=== PATIENT | female | born 1990 | race Caucasian/White ===

== ENCOUNTER → 2016-10-27 | Outpatient (CLI) | payer SELFPAY ==
[~2016-10-27] MED LIST: OMNICEF 300MG300 MG PO
== END ==
LOC: COL.RAD 09:45
DX: Z13.89 Encounter for screening for other disorder (principal)

== ENCOUNTER → 2017-04-04 | Outpatient (CLI) | payer SELFPAY | LOC: COL.RAD 10:23 | DX: N93.8 Other specified abnormal uterine and vaginal bleeding (principal) ==

== ENCOUNTER 2021-01-23 11:06 | Emergency (ER) | payer SELFPAY ==
[~2021-01-23] VITALS: Ht 162.6 cm; Wt 70.9 kg
[2021-01-23 11:41] LABS: COLLECTION METHOD CLEAN CATCH
[2021-01-23 11:50] LABS: BASO % 0.4 % (0.0-2.0); EOS # 0.1 (0.0-0.7); GRAN # 5.1 (1.4-6.5); GRAN % 64.8 % (42.2-75.2); HEMOGLOBIN 12.2 g/dl (12.5-16.0); LYMPH % 25.8 % (20.0-51.0); MEAN CELL VOLUME 90 fl (80.0-100.0); MEAN CORPUSCULAR HEMOGLOBIN 31 pg (27.0-31.0); MEAN CORPUSCULAR HGB CONC 34 g/dl (33.0-37.0); MEAN PLATELET VOLUME 9.8 fl (7.4-10.4); MONO # 0.6 (0.1-0.6); MONO % 7.6 % (1.7-9.3); PLATELET COUNT 273 K/mm3 (130-400); RED BLOOD COUNT 3.97 M/mm3 (4.10-5.30); REDCELL DISTRIBUTION WIDTH-CV 12.8 % (11.5-14.5)
[2021-01-23 12:02] LABS: ALBUMIN 4.4 gm/dL (3.5-5.0); BILIRUBIN,TOTAL 0.5 mg/dL (0.0-1.0); C-REACTIVE PROTEIN 0.9 mg/dL (0.0-0.9); CALCIUM 9.4 mg/dL (8.4-10.2); CREATININE, serum 0.51 (0.52-1.25); POTASSIUM 3.8 mmol/L (3.4-5.0); TOTAL PROTEIN 7.6 gm/dL (6.4-8.2)
[2021-01-23 12:05] LABS: PH 7 (5-8); URINE APPEARANCE Hazy; URINE BACTERIA Rare /hpf; URINE BILIRUBIN Negative (NEGATIVE); URINE BLOOD 1+ (NEGATIVE); URINE COLOR Yellow; URINE GLUCOSE Negative (NEGATIVE); URINE KETONE Negative (NEGATIVE); URINE LEUKOCYTE ESTERASE Negative (NEGATIVE); URINE NITRATE Negative (NEGATIVE); URINE PROTEIN(semi-quant) Negative (NEGATIVE); URINE RBC 0-2 /hpf; URINE UROBILINOGEN Negative (NEGATIVE)
[2021-01-23 12:19] LABS: HEMATOCRIT 35.8 % (37.0-47.0)
[2021-01-23 15:31] VITALS: BP 112/64; PULSE 78; TEMP 98.7
== END 2021-01-23 15:35 ==
LOC: COL.ER 11:06
PROVIDERS: Family Medicine
DX: O20.9 Hemorrhage in early pregnancy, unspecified (principal); Z3A.09 9 weeks gestation of pregnancy
CPT/HCPCS: J7120

== ENCOUNTER 2021-08-19 16:26 | Outpatient (CLI) | payer SELFPAY ==
[~2021-08-19] VITALS: Ht 162.6 cm; Wt 77.5 kg
[2021-08-19] MEDS ORDERED: PRENATAL (16:34)
[2021-08-19] MEDS ORDERED: TYLENOL 325MG325 MG PO (16:45)
[2021-08-19 17:15] VITALS: BP 113/65; PULSE 82; TEMP 98.2
--- NOTE | 2021-08-19 17:40 | NUR ---
DR MARV BARRERA SVE /-2. no change in SVE in the past hour. Dr. Molina said it was okay for patient to go home and to come back if contractions become stronger
--- NOTE | 2021-08-19 18:20 | NUR ---
1820 REPORT RECEIVED FROM OFF GOING SHIFT, Loraine ROLDAN RN, THAT PT IS READY TO GO HOME. EFM OFF AND DISMISS INSTRUCTIONS GIVEN. 183 HOME WITH INSTRUCTIONS.
== END 2021-08-19 18:35 | disposition home or self-care (01) ==
LOC: LDRO 16:26
DX: Z34.93 Encounter for supervision of normal pregnancy, unspecified, third trimester (principal); Z3A.38 38 weeks gestation of pregnancy

== ENCOUNTER 2021-08-24 22:54 | Outpatient (CLI) | payer SELFPAY ==
[~2021-08-24] VITALS: Ht 162.6 cm; Wt 78.6 kg
[~2021-08-24 22:54] MED LIST changes: +PRENATAL; +TYLENOL 325MG325 MG PO
--- NOTE | 2021-08-24 23:00 | NUR ---
2300- PATIENT WHEELED ONTO UNIT WITH SPOUSE BY HER SIDE. ORIENTATED TO ROOM AND CHANGED INTO CLEAN GOWN. PATIENT IS A AT 39.3 WHO PRESENTS TO L&D FOR CONTRACTIONS THAT ARE 5 MINUTES APART FOR THE LAST 3 HOURS, PER TRANSLATING. DENIES LOF, BLEEDING AND REPORTS GFM. PATIENT IS REQUESTING TO SHE HAD A PRIMARY IN 2014 FOR BREECH AND A IN 2012. 2305- EFM AND TOCO ON AND TRACING. VITALS AND ASSESSMENT COMPLETED. PLAN OF CARE DISCUSSED. 2315- SVE /-2. DISCUSSED PLAN OF CARE. DENIES FURTHER NEEDS. CALL LIGHT WITHIN REACH.
[2021-08-24 23:15] VITALS: BP 122/79; PULSE 71; TEMP 98
[2021-08-25 00:15] VITALS: BP 117/62; PULSE 65
[2021-08-26] MEDS ORDERED: IBU800 M1 PO (08:38)
== END 2021-08-25 00:20 | disposition home or self-care (01) ==
LOC: LDRO 22:54
DX: O47.1 False labor at or after 37 completed weeks of gestation (principal); Z3A.39 39 weeks gestation of pregnancy

== ENCOUNTER 2021-08-25 02:14 | Inpatient (IN) | payer OTHER ==
[2021-08-25] VITALS (12 sets, daily range): BP systolic 105–141; BP diastolic 62–85; PULSE 68–95; TEMP 97.7–98.5
--- NOTE | 2021-08-25 02:15 | NUR ---
0215- PATIENT WHEELED ONTO UNIT WITH BY HER SIDE. PATIENT IS A VBACING AT 39.4 TODAY. DENIES BLEEDING OR WATER BREAKING. CONTRACTIONS EVERY 3 MINUTES AND GOOD MOVEMENT. 0220- EFM AND TOCO ON AND TRACING. VITALS AND ASSESSMENT COMPLETED. SVE 9/100/0. 0224- PHYSICIAN NOTIFIED, SEE NOTIFICATION. 0230- IV STARTED. FLUIDS RUNNING. 0235- DR. ROLES AT BEDSIDE. PATIENT IS COMPLETE. AROM, WITH CLEAR FLUID NOTED. PATIENT AND ROOM SET UP FOR DELIVERY AT THIS TIME. 0242- OF VIABLE FEMALE INFANT. PLACED TO MOTHER ABDOMEN WHERE NURSERY NURSE ASSUMES CARE. CORD CLAMPED BY PROVIDER AND CUT BY FATHER OF THE BABY. 0246- OF PLACENTA. PITOCIN STARTED PER PROTOCOL AT 333ML/HR. PROVIDER NOTED A LABIAL LACERATION AND 1ST DEGREE TEAR THAT NEEDED NO REPAIR PER PROVIDER. EBL NOTED TO BE 200 BY PROVIDER. PATIENT AND ROOM CLEANED UP. 0300- NEW CHUX, PERIPAD AND ICEPACK UNDER PATIENT. VITALS STABLE. FUNDUS FIRM WITH LARGE CLOTS NOTED. RECOVERY STARTED. PROVIDER NOTIFIED OF THE FUNDAL PUSH. VERBAL ORDER FOR ORAL METHERGINE NOW. 0305- ORAL METHERGINE GIVEN. PATIENT DENIES FURTHER NEEDS. CALL LIGHT WITHIN REACH.
[2021-08-25 02:42] LABS: BASO % 0.3 % (0.0-2.0); EOS # 0.2 K/mm3 (0.0-0.7); EOS % 1.4 % (0.0-4.0); GRAN # 7.2 K/mm3 (1.4-6.5); GRAN % 65.4 % (42.2-75.2); LYMPH # 2.9 K/mm3 (1.2-3.4); MEAN CELL VOLUME 87 fl (80.0-100.0); MEAN CORPUSCULAR HEMOGLOBIN 29 pg (27-31); MEAN CORPUSCULAR HGB CONC 33 g/dl (33.0-37.0); MEAN PLATELET VOLUME 10.6 fl (7.4-10.4); MONO # 0.7 K/mm3 (0.1-0.6); MONO % 6.4 % (1.7-9.3); PLATELET COUNT 281 K/mm3 (130-400); RED BLOOD COUNT 4.17 M/mm3 (4.10-5.30); REDCELL DISTRIBUTION WIDTH-CV 13.9 % (11.5-14.5)
[2021-08-25 02:44] LABS: HEMATOCRIT 36.1 % (37.0-47.0)
--- NOTE | 2021-08-25 09:06 | NUR ---
Initial visit; Patient thanked Heat Treat Operator for offering congratulations for the of her daughter. Heat Treat Operator thanked Mom for choosing [facility].
[2021-08-26] MEDS ORDERED: IBU800 M1 PO (08:38)
--- NOTE | 2021-08-26 09:45 | NUR ---
Initial visit; Patient thanked Computer Customer Support Specialist for offering congratulations and God's blessings for the of her daughter. Computer Customer Support Specialist thanked patient for choosing [facility].
[2021-08-26 10:06] VITALS: BP 112/72; PULSE 79; TEMP 97.1
--- NOTE | 2021-08-26 13:45 | NUR ---
DISCHARGE TEACHING COMPLETED. FAMILY INTERPRETS FOR PATIENT. EDUCATED ON FOLLOW UP APOINTMENT AND PRESCRIPTIONS. QUESTIONS INVITED AND ANSWERED.
== END 2021-08-26 14:05 | disposition home or self-care (01) | DRG 807 ==
LOC: LDRO 02:14 → LDR 02:54 → OB 05:15
PROVIDERS: ADMIT Obstetrics & Gynecology
PROC: 10E0XZZ Delivery of Products of Conception, External Approach (ICD-10-PCS; principal; 2021-08-25)
DX: O34.211 Maternal care for low transverse scar from previous cesarean delivery (principal); Z37.0 Single live birth; O70.0 First degree perineal laceration during delivery; Z3A.39 39 weeks gestation of pregnancy
CPT/HCPCS: J2590; J7120